=== PATIENT | female | born 1985 | race Caucasian/White ===

== ENCOUNTER 2017-10-04 15:36 | Inpatient (IN) | payer BC ==
[2017-10-04] VITALS (24 sets, daily range): BP systolic 111–171; BP diastolic 58–83; PULSE 75–105; TEMP 97.6–98.1
[~2017-10-04] VITALS: Ht 157.5 cm; Wt 100.0 kg
[~2017-10-04 15:36] MED LIST: PRENATAL1 TA1 PO
[2017-10-04] MEDS ORDERED: LEVOXYL0.125 MG PO (16:08)
[2017-10-04 17:27] LABS: BASO % 0.4 % (0.0-2.0); EOS # 0.2 (0.0-0.7); EOS % 1.5 % (0-4.0); GRAN # 7.5 (1.4-6.5); GRAN % 67.4 % (42.2-75.2); HEMOGLOBIN 12.1 g/dl (12.5-16.0); LYMPH # 2.1 (1.2-3.4); LYMPH % 18.6 % (20.0-51.0); MEAN CELL VOLUME 89 fl (80.0-100.0); MEAN CORPUSCULAR HEMOGLOBIN 29 pg (27.0-31.0); MEAN CORPUSCULAR HGB CONC 33 g/dl (33.0-37.0); MEAN PLATELET VOLUME 11.3 fl (7.4-10.4); MONO % 9.1 % (1.7-9.3); PLATELET COUNT 163 K/mm3 (130-400); RED BLOOD COUNT 4.12 M/mm3 (4.10-5.30); REDCELL DISTRIBUTION WIDTH-CV 15.5 % (11.5-14.5)
[2017-10-04 17:30] LABS: HEMATOCRIT 36.6 % (37.0-47.0)
[2017-10-05 02:32] VITALS: BP 117/81; PULSE 104; TEMP 98.7
[2017-10-05 07:20] VITALS: BP 106/48; PULSE 80; TEMP 98.2
[2017-10-05 11:00] VITALS: BP 132/82; PULSE 92; TEMP 98.5
[2017-10-05 16:20] VITALS: BP 136/68; PULSE 88; TEMP 97.6
[2017-10-05 20:15] VITALS: BP 141/74; PULSE 89; TEMP 98.4
[2017-10-06 08:50] VITALS: BP 128/85; PULSE 96; TEMP 97.8
[2017-10-06] MEDS ORDERED: IBU600 MG PO (08:54)
== END 2017-10-06 12:00 | disposition home or self-care (01) | DRG 775 ==
LOC: LDRO 15:36 → LDR 16:46 → OB 16:46
PROVIDERS: Obstetrics & Gynecology
PROC: 10E0XZZ Delivery of Products of Conception, External Approach (ICD-10-PCS; principal; 2017-10-04)
PROC: 0HQ9XZZ Repair Perineum Skin, External Approach (ICD-10-PCS; 2017-10-04)
DX: O70.0 First degree perineal laceration during delivery (principal); Z3A.39 39 weeks gestation of pregnancy; Z37.0 Single live birth; O99.284 Endocrine, nutritional and metabolic diseases complicating childbirth; E03.9 Hypothyroidism, unspecified
CPT/HCPCS: J2590; J2795; J7120

== ENCOUNTER 2019-03-27 15:49 | Outpatient (CLI) | payer BC ==
[~2019-03-27] VITALS: Ht 157.5 cm; Wt 108.2 kg
[~2019-03-27 15:49] MED LIST changes: +IBU600 MG PO; +LEVOXYL0.125 MG PO
--- NOTE | 2019-03-27 16:19 | NUR ---
1600 - Pt arrives ambulatory to unit with spouse and children. Pt states she thinks her water broke at work around 1230, denies vaginal bleeding or contractions, reports good movement. EFM explained and placed, vitals taken. SVE /3, amniotrace negative. Dr. Weiss notified, see physician notification.
[2019-03-27 17:10] VITALS: BP 131/79; PULSE 103; TEMP 97.5
--- NOTE | 2019-03-27 17:10 | NUR ---
SVE unchanged. Pt chip every 6-10 minutes with reactive FHT. No leaking of fluid noted or reported by pt. Dr. Weiss notified.
--- NOTE | 2019-03-27 17:15 | NUR ---
Pt provided information Early labor and Discomforts of , given information to return to hospital with vaginal bleeding, leaking of fluid, contractions every 5-7 minutes, or decreased movement. Pt verbalized understanding. Pt and family left unit ambulatory with no further questions/needs expressed.
== END 2019-03-27 17:15 | disposition home or self-care (01) ==
LOC: LDRO 15:49
DX: O62.9 Abnormality of forces of labor, unspecified (principal); Z3A.39 39 weeks gestation of pregnancy

== ENCOUNTER 2019-03-31 08:54 | Inpatient (IN) | payer BC ==
[~2019-03-31] VITALS: Ht 157.6 cm; Wt 108.2 kg
[2019-04-01] VITALS (43 sets, daily range): BP systolic 90–147; BP diastolic 45–87; PULSE 60–903; TEMP 97.9–98.2
--- NOTE | 2019-04-01 07:05 | NUR ---
PATIENT HERE IN LR 5 FOR INDUCTION. PATIENT DENIES CONTRACTIONS, BLEEDING OR LEAKING OF FLUID. PATIENT CHANGED INTO GOWN, ON EFM, VITALS OBTAINED, ADMISSION COMPLETE.CONSENTS SIGNED, IV STARTED AT BEDSIDE. BABY BOY- EDIS.
[2019-04-01 07:56] LABS: HEMATOCRIT 37.6 % (37.0-47.0); HEMOGLOBIN 12.5 g/dl (12.5-16.0); MEAN CELL VOLUME 91 fl (80.0-100.0); MEAN CORPUSCULAR HEMOGLOBIN 30 pg (27.0-31.0); MEAN CORPUSCULAR HGB CONC 33 g/dl (33.0-37.0); PLATELET COUNT 158 K/mm3 (130-400); RED BLOOD COUNT 4.15 M/mm3 (4.10-5.30)
--- NOTE | 2019-04-01 08:30 | NUR ---
PATIENT UP TO BATHROOM FROM
[2019-04-01 08:48] LABS: BAND 9 % (0-10); EOSINOPHIL 1 % (0-4); LYMPHOCYTE 15 % (20.0-51.0); METAMYELOCYTE 2 % (0-0); NEUTROPHILS 64 % (42.0-75.2); PLATELET ESTIMATE NORMAL (NORMAL)
--- NOTE | 2019-04-01 13:20 | NUR ---
1310- DR SCHWARTZ IN PATIENTS ROOM. SVE PREFORMED. ULTRASOUND USED. BREECH PRESENTATION CONFIRMED. ORDERED SECTION.PATIENT PREPPED FOR C/S PATIENT OFF EFM AT 1320 AND WHEELED TO OPERATING ROOM
[2019-04-02 02:00] VITALS: BP 120/75; PULSE 102; TEMP 98.7
[2019-04-02 08:30] VITALS: BP 118/73; PULSE 92; TEMP 98.4
[2019-04-02] MEDS ORDERED: PERCOCET 325 MG1 TA2 PO (09:06)
[2019-04-02] MEDS ORDERED: IBU600 MG PO (09:06)
--- NOTE | 2019-04-02 11:13 | NUR ---
Initial visit attempt; Patient resting, Generator Technician left card of congratulations and God's blessings for the of her son and information regarding the availability of spiritual care at [facility].
[2019-04-02 11:50] VITALS: BP 124/65; PULSE 87; TEMP 97.8
[2019-04-02 21:00] VITALS: BP 123/71; PULSE 92; TEMP 98.2
[2019-04-03 07:30] VITALS: BP 130/73; PULSE 97; TEMP 98
[2019-04-03 17:00] VITALS: BP 145/82; PULSE 98; TEMP 98.2
== END 2019-04-03 17:15 | disposition home or self-care (01) | DRG 788 ==
LOC: OB 08:54 → LDR 04-01 07:00 → OB 04-01 08:58
PROVIDERS: ADMIT Obstetrics & Gynecology
PROC: 10907ZC Drainage of Amniotic Fluid, Therapeutic from Products of Conception, Via Natural or Artificial Opening (ICD-10-PCS; 2019-04-01)
PROC: 3E033VJ Introduction of Other Hormone into Peripheral Vein, Percutaneous Approach (ICD-10-PCS; 2019-04-01)
PROC: 10D00Z1 Extraction of Products of Conception, Low, Open Approach (ICD-10-PCS; principal; 2019-04-02)
DX: O32.1XX0 Maternal care for breech presentation, not applicable or unspecified (principal); Z3A.39 39 weeks gestation of pregnancy; Z37.0 Single live birth; O99.284 Endocrine, nutritional and metabolic diseases complicating childbirth
CPT/HCPCS: J1885; J2270; J2370; J2400; J2405; J2590; J7120